=== PATIENT | female | born 2000 | race African-American/Black ===

== ENCOUNTER 2020-06-25 11:32 | Emergency (ER) | payer OTHER ==
[~2020-06-25] VITALS: Ht 160 cm; Wt 46.7 kg
[2020-06-25 11:59] LABS: ABSOLUTE NEUTROPHILS 10.6 thou/uL (1.4-8.2); BASOPHILS 0.4 % (0.0-2.0); EOSINOPHILS 1.7 % (0.0-3.0); HEMATOCRIT 37.4 % (37.0-47.0); HEMOGLOBIN 12.3 gm/dL (12.0-15.0); LYMPHOCYTES 19.5 % (24.0-44.0); MCH 30.3 pg (26.0-34.0); MCHC 32.9 g/dL (28.0-37.0); MONOCYTES 4.4 % (1.0-8.0); PLATELET COUNT 318 thou/uL (150-400); RBC 4.07 mil/uL (4.20-5.00); RDW 17.7 % (10.5-14.5); WBC 14.3 thou/uL (4.0-11.0)
[2020-06-25 12:10] LABS: ANION GAP 19 mmol/L (7-16); BUN 6 mg/dL (7-18); CALCIUM 9.4 mg/dL (8.5-10.1); CHLORIDE 97 mmol/L (98-107); CO2 20 mmol/L (21-32); CREATININE 0.9 mg/dL (0.6-1.0); GLUCOSE 184 mg/dL (74-106); POTASSIUM 3.2 mmol/L (3.5-5.1); SODIUM 136 mmol/L (136-145)
[2020-06-25 12:21] LABS: LIPASE 86 U/L (73-393); SGOT 17 U/L (15-37); SGPT 13 U/L (14-59); TOTAL BILIRUBIN 0.5 mg/dL (0.2-1.0); TOTAL PROTEIN 8.6 g/dL (6.4-8.2); TROPONIN-I <0.06 ng/mL (<0.06)
[2020-06-25 12:54] LABS: URINE BILIRUBIN NEGATIVE (Negative); URINE BLOOD NEGATIVE (Negative); URINE CLARITY CLEAR; URINE COLOR YELLOW; URINE GLUCOSE-RANDOM* 3+ (Negative); URINE KETONES 2+ (Negative); URINE LEUKOCYTES-REFLEX NEGATIVE (Negative); URINE NITRITE-REFLEX NEGATIVE (Negative); URINE PROTEIN (DIPSTICK) TRACE (Negative); URINE SPECIFIC GRAVITY 1.015 (1.005-1.035); URINE UROBILINOGEN 0.2 E.U./dl (0.2-1.0)
[2020-06-25] MEDS ORDERED: COMPAZINE10 M2 PO (13:34)
[2020-06-25 14:53] VITALS: BP 105/69
--- NOTE | 2020-06-25 15:26 | EKG ---
[address] [address] ELECTROCARDIOGRAM REPORT Name: MARTHA ALBERTS Room #: [id number] Admission: 06/25/20 Attend Phys: Discharge: Date of : [birth year] Report #: [id number] [facility] ED Test Date: 2020-06-25 Test Time: 11:41:38 Pat Name: MARTHA ALBERTS Department: Room: Gender: F Color Card Maker: WANDA : 2000 Requested By: Jameson Brunson Order Number: [id number] MD: Avi Sexton Measurements Intervals [place] Rate: 105 P: 79 MD: 115 QRS: 76 QRSD: 86 T: -12 QT: 358 QTc: 474 Interpretive Statements Sinus tachycardia Probable left atrial enlargement Borderline T abnormalities, inferior leads No previous ECG available for comparison Electronically Signed On 06-25-2020 15:26:33 CDT by Avi Sexton [email or web address] <ELECTRONICALLY SIGNED> By: Avi Sexton MD 06/25/20 1526 1141 1141 Avi Sexton MD /EPI
== END 2020-06-25 14:45 | disposition home or self-care (01) ==
LOC: ER 11:32
PROVIDERS: Emergency Medicine
DX: J06.9 Acute upper respiratory infection, unspecified (principal); R06.00 Dyspnea, unspecified; R11.10 Vomiting, unspecified; Z20.822 Contact with and (suspected) exposure to COVID-19